=== PATIENT | female | born 1980 | race Two or more races ===

== ENCOUNTER 2022-07-03 19:29 | Emergency (ER) | payer OTHER ==
[~2022-07-03] VITALS: Ht 170.2 cm; Wt 99.3 kg
[2022-07-03] MEDS ORDERED: COZAAR25 MG PO (20:17)
[2022-07-03] MEDS ORDERED: DULOXETINE HCL40 MG PO (20:18)
== END 2022-07-04 00:15 | disposition home or self-care (01) ==
LOC: ER 19:29
DX: S93.402A Sprain of unspecified ligament of left ankle, initial encounter (principal); V00.141A Fall from scooter (nonmotorized), initial encounter; Y93.89 Activity, other specified; Y92.89 Other specified places as the place of occurrence of the external cause; Y99.9 Unspecified external cause status; Z88.8 Allergy status to other drugs, medicaments and biological substances; Z91.013 Allergy to seafood; I10 Essential (primary) hypertension; R73.03 Prediabetes